=== PATIENT | female | born 1955 | race Caucasian/White ===

== ENCOUNTER → 2017-12-29 | Outpatient (CLI) | payer BC ==
[~2017-12-29] MED LIST: ACET650T97 PO; ATOR-22 PO; CHOL2000 PO; DOCU100T7 PO; FLM4 PO; LISI-729 PO; METF-384 PO; METF1000 PO; NYST100010 TOP; OMEP40CA41 PO
--- NOTE | 2017-12-29 09:25 | DIAGNOSTIC IMAGING REPORT ---
KUB CLINICAL HISTORY: N20.1 Ureteric stone nephrocalcinosis COMPARISON STUDY: 11/21/2017 FINDINGS: No change in the bilateral calcifications of the soft tissue pelvis. The 6 mm distal right ureteral calculus previously described potentially is vascular although this is not confirmed. No significant nephrocalcinosis. IMPRESSION: Negative study currently. The 6 mm calcification right lateral soft tissue pelvis is unchanged. Etiology is unknown The above report was generated using voice recognition software. It may contain grammatical, syntax or spelling errors. Electronically signed by: Justo Sanchez M.D. 12/29/2017 9:24 AM Dictated Date/Time: 12/29/2017 9:22 AM
--- NOTE | 2017-12-29 09:45 | DIAGNOSTIC IMAGING REPORT ---
(KASIE/BLAD)RETROPERITON COMP HISTORY: 62 years-old Female N20.1 Ureteric stone follow-up study in a patient with history of renal and ureteral calculi COMPARISON: KUB of same day and 11/22/2017, CT 11/15/2017 TECHNIQUE: Multiple real-time sonographic images of the kidneys and bladder were obtained assessing grayscale appearance and color flow FINDINGS: Right kidney measures 11.7 cm in length and demonstrates no renal calculi, hydronephrosis or suspicious mass lesions. Left kidney measures 10.4 cm in length and demonstrates no shadowing renal calculi, hydronephrosis or suspicious mass lesions. Subcentimeter cysts about the left kidney redemonstrated. Bladder is within normal limits with bilateral ureteral jets present. IMPRESSION: 1. Unremarkable sonographic appearance of the kidneys without renal calculi or hydronephrosis. 2. Urinary bladder appears unremarkable. The above report was generated using voice recognition software. It may contain grammatical, syntax or spelling errors. Electronically signed by: Brian Stein M.D. 12/29/2017 9:44 AM Dictated Date/Time: 12/29/2017 9:40 AM
== END | disposition home or self-care (01) ==
LOC: C.ULTR 08:53
PROVIDERS: ATTEND Urology
DX: N20.1 Calculus of ureter (principal)

== ENCOUNTER 2022-10-20 16:39 | Inpatient (IN) ==
[2022-10-20] MEDS ORDERED: SODIUM CHLORIDE 0.9% 1000ML 1,000 ML IV ONE ×2 (16:49→18:07)
--- NOTE | 2022-10-20 16:49 | ED Triage Note ---
Date of Service October 20, 2022 History of Present Illness This patient was briefly evaluated while in triage. An abbreviated physical exam was performed. This patient is a 67-year-old Female who presents to the ED for evaluation of "my sugar." Pt. reports elevated blood sugar of 425 at home. States she is a T ype 2 Diabetic and takes Metformin. Is not on insulin. Did have one episode of hyperglycemia about a year ago which went down. States had recent URI which was treated with Z-pack. Pt. notes she is not feeling much better despite the antibiotic. Reports persistent dizziness. BSG in triage 485, repeat 462. Physical Exam VITALS: Vitals are noted on the nurse's note and reviewed by myself. GENERAL: This is a 67 year old female, in no acute distress, nondiaphoretic, well-developed well-nourished. SKIN: No obvious rashes, edema, erythema HEAD: Normocephalic atraumatic. EYES: Conjunctivae without injection, sclerae without icterus. NECK: No JVD. LUNGS: No retractions or accessory muscle use. MUSCULOSKELETAL: Normal gait. NEURO: Patient was alert and oriented to person place and time. No focal neurological deficits. Initial orders for labs and / or imaging were placed and patient was placed in the waiting area until a bed is available. Please see further documentation for the full ED course.
[2022-10-20 17:52] LABS: Alanine Aminotransferase 15 U/L (7-52); Albumin Globulin Ratio 1.1 (0.9-2); Albumin Level 4.4 gm/dl (3.4-5.0); Alkaline Phosphatase 105 U/L (34-104); Anion Gap 14 (3-11); Aspartate Aminotransferase 13 U/L (13-39); BUN Creatinine Ratio 28.1 (10-20); Bilirubin,Total 0.8 mg/dl (0.2-1.0); Blood Urea Nitrogen 36 mg/dl (6-23); Calcium 10.7 mg/dl (8.6-10.3); Carbon Dioxide 22 mmol/L (21-32); Chloride 93 mmol/L (98-107); Est GFR (African American) 50.1 ml/min; Est GFR (Non-African American) 43.2 ml/min; Globulin 3.9 gm/dl (2.5-4.0); Glucose 456 mg/dl (70-99(Fasting)); Magnesium 1.7 mg/dl (1.7-2.4); Phosphorus 4.7 mg/dl (2.5-4.9); Potassium 5.3 mmol/L (3.5-5.1); Sodium 129 mmol/L (136-145); Total Protein 8.3 gm/dl (6.0-8.3)
[2022-10-20 17:59] LABS: Hematocrit (blood only) 48.5 % (37.0-47.0); Hemoglobin 16.7 g/dl (12.0-16.0); Mean Corpuscular Hemoglobin 30.6 pg (25.0-34.0); Mean Corpuscular Hgb Conc 34.4 g/dL (32.0-36.0); Mean Platelet Volume 10.2 fL (9.4-12.4); Platelet Count 431 K/uL (130-400); RDW Standard Deviation 42.1 fL (36.4-46.3); Red Blood Count 5.45 M/uL (4.20-5.40); White Blood Count 13.87 K/ul (4.8-10.8)
[2022-10-20] MEDS ORDERED: NovoLIN-R INSULIN PER UNIT CHARGE SC STA ×2 (18:10→20:28)
--- NOTE | 2022-10-20 18:13 | Emergency Department Note ---
Impression & Plan Hyperglycemia, DKA (diabetic ketoacidosis), Acute hyperkalemia ED Provider Note HISTORY OF PRESENT ILLNESS: Patient is a 61-year-old female presenting with dizziness and hyperglycemia. Patient reports that for the last 2 days she has been feeling dizzy described as lightheaded and "off." She states that she took her blood sugar at home and it was elevated over 400. She is on Jardiance and metformin twice daily. Reports that her glucose remained over 400, prompting her to present to the emergency department today. Denies any chest pain or shortness of breath. Reports po lyuria and polydipsia. Denies any abdominal pain. Denies any dysuria or hematuria. She reports that last week she was on a Z-Jon and prednisone course for upper respiratory infection diagnosed at [facility]. She reports her last dose of prednisone was 2 days ago. She denies any changes in vision, such as double or blurry vision. Denies any numbness, tingling or weakness in extremities. Denies any recent head injuries or chiropractic manipulation of her neck ROS: as above PHYSICAL EXAM: Constitutional: Patient appears in no acute distress. HENT: Head: Normocephalic and atraumatic. Eyes: EOMI, PERRL Mouth/Throat: Mucous membranes moist. Neck: Trachea midline. Neck supple. Cardiovascular: Tachycardic with regular rhythm. No murmurs, rubs or gallops. Intact distal pulses. Pulmonary/Chest: No respiratory distress. Breath sounds clear and equal bilaterally. No wheezes or rales. Abdominal: BS +. Abdomen soft, no tenderness, rebound or guarding. Musculoskeletal: No edema, tenderness or deformity noted. Skin: Warm and dry. No rash, erythema, pallor or cyanosis Psychiatric: Appropriate mood and affect for situation. Neurological: Alert and keenly responsive. CN II-XII grossly intact, moving all extremities equally and fully. MDM: - Vitals signs showed hypertension and tachycardia. - History obtained via patient. Patient presents with symptomatic hypoglycemia. Patient reports that she has been feeling lightheaded and unwell for the last 48 hours. Reports she has a history of type 2 diabetes and is on Jardiance and metformin. Reports that given her symptoms for the last few days, she took her blood sugar today and at home it was over 400. She presented to the emergency department for further evaluation. Denies any chest pain or shortness of breath. She was treated with a Z-Jon and prednisone over the last week for an upper respiratory infection. She reports her last dose of prednisone was 48 hours ago. - Chronic conditions affecting care: DM-2; HLD; HTN - Differential diagnoses include, but are not limited to: DKA; electrolyte abnormality; CLARK; pneumonia; UTI - Order placed for continuous cardiac monitoring. At this time, monitor showed rate of 90 bpm with normal sinus rhythm, per my interpretation. - External medical records reviewed. - Laboratory workup interpreted by myself showed leukocytosis (WBC 13.87); thrombocytosis (plt 431); hyponatremia (Na 129 - normal when corrected for hyperglycemia Na 135); hyperkalemia (K 5.3); slight CLARK (Cr 1.28); slightly elevated anion gap (14); hyperglycemia (glucose 456) - VBG shows slight acidosis (pH 7.34) - Patient given 2L NS and 5 units subQ insulin. - Repeat BMP shows closed anion gap and improved creatinine. Potassium still 5.2, but improved from 5.3. Repeat glucose 302. Will give an additional 7 units of insulin for further coverage. - Patient's hyperglycemia likely secondary to her steroid use. - Discussed results with patient. She reports that she still feeling generally unwell and felt dizzy when she got up to try to use the bathroom. Her repeat glucose is still in the 300s, though her gap is closed. Will admit to the hospital service for observation. - Discussion was had with social service liaison about patient's case and need for admission. - Hospitalist, Dr. Mancera, consulted for admission. - Patient admitted to [facility] service for further evaluation and management. ASSESSMENT AND PLAN: Diagnosis: DKA; hyperglycemia; hyperkalemia Plan: admit Past Med/Surg History Medical History DM type 2 (diabetes mellitus, type 2) Dyslipidemia GERD (gastroesophageal reflux disease) Hypertension Nephrolithiasis Uric acid renal calculus Surgical History H/O nephrolithotomy with removal of calculi History of hemorrhoidectomy Nephrostomy status "2015 - used to treat large staghorn calculus" S/P cholecystectomy S/P cholecystectomy [place] teeth extracted Family History Father Colon cancer Social History Smoking Status: Never smoker Hx Alcohol Use: No Hx Substance Use: No Preferred Language: Bulgarian current occupational status: employed Feels Safe at Home: Yes Allergies Allergies Allergy/AdvReac Type Severity Reaction Status Date / Time No Known Allergies Allergy Unknown Unverified 10/20/22 21:00 Home Meds Home Medications Medication Instructions Recorded Confirmed metformin 1,000 mg tablet 1,000 mg PO BID 09/24/20 10/20/22 atorvastatin 40 mg tablet 40 mg PO QAM 10/20/22 10/20/22 cholecalciferol (vitamin D3) 50 100 mcg PO DAILY 10/20/22 10/20/22 mcg (2,000 unit) tablet (Vitamin D3) empagliflozin 25 mg tablet 25 mg PO QAM 10/20/22 10/20/22 (Jardiance) glipizide 10 mg tablet, extended 10 mg PO DAILYBB 10/20/22 10/20/22 release 24 hr losartan 50 mg tablet 50 mg PO DAILY 10/20/22 10/20/22 magnesium chloride 64 mg 128 mg PO QAM 10/20/22 10/20/22 (magnesium chloride) tablet,delayed release (Mag 64) nystatin 100,000 unit/gram topical 1 applic topical TID 10/20/22 10/20/22 powder omeprazole 40 mg capsule,delayed 40 mg PO DAILYBB 10/20/22 10/20/22 release pioglitazone 45 mg tablet 45 mg PO DAILY 10/20/22 10/20/22 Previous Rx's Medication Instructions Recorded potassium citrate 15 mEq (1,620 1,620 mg PO BID #180 tabs 08/12/22 mg) tablet,extended release Results & Data (ED) Vital Signs Vital Signs - 24 hr 10/20/22 16:45 10/20/22 19:10 10/20/22 20:37 Temperature 36.1 C L Temperature Source Temporal Artery Scan Pulse Rate 115 H Pulse Rate [Finger] 91 H 85 Pulse Rhythm [Finger] Regular Pulse Strength [Finger] Normal Respiratory Rate 20 16 18 Respiratory Effort / Characteristics Non-Labored Spontaneous Non-Labored Spontaneous Non-Labored Spontaneous Respiratory Depth Normal Normal Normal Respiratory Pattern Regular Regular Blood Pressure 165/79 H Blood Pressure [Left Arm] 152/84 H 150/80 H Blood Pressure Mean 107 Blood Pressure Mean [Left Arm] 106 103 Blood Pressure Position [Left Arm] Semi-fowlers Semi-fowlers Pulse Oximetry 95 96 96 Oxygen Delivery Method Room Air Room Air Room Air Sepsis New/Unexplained Change in Mental Status No Sepsis Action Taken by Nursing No Action Required Laboratory Data 10/20/22 17:15 10/20/22 17:15 Lab Results 10/20/22 10/20/22 10/20/22 Range/Units 16:48 16:50 17:15 WBC 13.87 H (4.8-10.8) K/ul RBC 5.45 H (4.20-5.40) M/uL Hgb 16.7 H (12.0-16.0) g/dl Hct 48.5 H (37.0-47.0) % MCV 89.0 (80.0-100.0) fL MCH 30.6 (25.0-34.0) pg MCHC 34.4 (32.0-36.0) g/dL RDW Std Deviation 42.1 (36.4-46.3) fL RDW Coeff of Ankit 13.0 (11.5-14.5) % Plt Count 431 H (130-400) K/uL MPV 10.2 (9.4-12.4) fL Immature Gran % (Auto) 0.9 % Neut % (Auto) 51.2 % Lymph % (Auto) 39.4 % Mclean % (Auto) 7.6 % Eos % (Auto) 0.4 % Baso % (Auto) 0.5 % Neut # (Auto) 7.11 H (1.40-6.50) K/uL Lymph # (Auto) 5.47 H (1.2-3.4) K/uL Mclean # (Auto) 1.05 H (0.11-0.59) K/uL Eos # (Auto) 0.05 (0-0.50) K/uL Baso # (Auto) 0.07 (0-0.2) K/uL Immature Gran # (Auto) 0.12 (0.01-0.20) K/uL Polychromasia 1+ VBG pH (7.36-7.41) VBG pCO2 (38-50) mmHg VBG pO2 mmHg VBG HCO3 mmol/L VBG O2 Saturation % VBG Base Excess mEq/L Sodium (136-145) mmol/L Potassium (3.5-5.1) mmol/L Chloride (98-107) mmol/L Carbon Dioxide (21-32) mmol/L Anion Gap (3-11) BUN (6-23) mg/dl Creatinine (0.6-1.2) mg/dl Est Cr Clr Drug Dosing Est GFR ( Amer) ml/min Est GFR (Non-Af Amer) ml/min BUN/Creatinine Ratio (10-20) Glucose (70-99(Fasting)) mg/dl POC Glucose 485 H* 462 H* (70-99) mg/dl Calcium (8.6-10.3) mg/dl Phosphorus (2.5-4.9) mg/dl Magnesium (1.7-2.4) mg/dl Total Bilirubin (0.2-1.0) mg/dl AST (13-39) U/L ALT (7-52) U/L Alkaline Phosphatase (34-104) U/L Total Protein (6.0-8.3) gm/dl Albumin (3.4-5.0) gm/dl Globulin (2.5-4.0) gm/dl Albumin/Globulin Ratio (0.9-2) Urine Color Urine Appearance (Clear) Urine pH (4.5-7.5) Ur Specific [employer] (1.000-1.030) Urine Protein (Negative) Urine Glucose (UA) (Negative) Urine Ketones (Negative) Urine Blood (Negative) Urine Nitrite (Negative) Urine Bilirubin (Negative) Urine Urobilinogen (Negative) Ur Leukocyte Esterase (Negative) 10/20/22 10/20/22 10/20/22 Range/Units 17:15 17:17 17:58 WBC (4.8-10.8) K/ul RBC (4.20-5.40) M/uL Hgb (12.0-16.0) g/dl Hct (37.0-47.0) % MCV (80.0-100.0) fL MCH (25.0-34.0) pg MCHC (32.0-36.0) g/dL RDW Std Deviation (36.4-46.3) fL RDW Coeff of Ankit (11.5-14.5) % Plt Count (130-400) K/uL MPV (9.4-12.4) fL Immature Gran % (Auto) % Neut % (Auto) % Lymph % (Auto) % Mclean % (Auto) % Eos % (Auto) % Baso % (Auto) % Neut # (Auto) (1.40-6.50) K/uL Lymph # (Auto) (1.2-3.4) K/uL Mclean # (Auto) (0.11-0.59) K/uL Eos # (Auto) (0-0.50) K/uL Baso # (Auto) (0-0.2) K/uL Immature Gran # (Auto) (0.01-0.20) K/uL Polychromasia VBG pH (7.36-7.41) VBG pCO2 (38-50) mmHg VBG pO2 mmHg VBG HCO3 mmol/L VBG O2 Saturation % VBG Base Excess mEq/L Sodium 129 L (136-145) mmol/L Potassium 5.3 H (3.5-5.1) mmol/L Chloride 93 L (98-107) mmol/L Carbon Dioxide 22 (21-32) mmol/L Anion Gap 14 H (3-11) BUN 36 H (6-23) mg/dl Creatinine 1.28 H (0.6-1.2) mg/dl Est Cr Clr Drug Dosing Not Reportable Est GFR ( Amer) 50.1 ml/min Est GFR (Non-Af Amer) 43.2 ml/min BUN/Creatinine Ratio 28.1 H (10-20) Glucose 456 H* (70-99(Fasting)) mg/dl POC Glucose 489 H* (70-99) mg/dl Calcium 10.7 H (8.6-10.3) mg/dl Phosphorus 4.7 (2.5-4.9) mg/dl Magnesium 1.7 (1.7-2.4) mg/dl Total Bilirubin 0.8 (0.2-1.0) mg/dl AST 13 (13-39) U/L ALT 15 (7-52) U/L Alkaline Phosphatase 105 H (34-104) U/L Total Protein 8.3 (6.0-8.3) gm/dl Albumin 4.4 (3.4-5.0) gm/dl Globulin 3.9 (2.5-4.0) gm/dl Albumin/Globulin Ratio 1.1 (0.9-2) Urine Color Yellow Urine Appearance Clear (Clear) Urine pH 5.0 (4.5-7.5) Ur Specific [employer] 1.036 H (1.000-1.030) Urine Protein Negative (Negative) Urine Glucose (UA) 3+ H (Negative) Urine Ketones 2+ H (Negative) Urine Blood Negative (Negative) Urine Nitrite Negative (Negative) Urine Bilirubin Negative (Negative) Urine Urobilinogen Negative (Negative) Ur Leukocyte Esterase Negative (Negative) 10/20/22 10/20/22 10/20/22 Range/Units 18:39 19:31 19:47 WBC (4.8-10.8) K/ul RBC (4.20-5.40) M/uL Hgb (12.0-16.0) g/dl Hct (37.0-47.0) % MCV (80.0-100.0) fL MCH (25.0-34.0) pg MCHC (32.0-36.0) g/dL RDW Std Deviation (36.4-46.3) fL RDW Coeff of Ankit (11.5-14.5) % Plt Count (130-400) K/uL MPV (9.4-12.4) fL Immature Gran % (Auto) % Neut % (Auto) % Lymph % (Auto) % Mclean % (Auto) % Eos % (Auto) % Baso % (Auto) % Neut # (Auto) (1.40-6.50) K/uL Lymph # (Auto) (1.2-3.4) K/uL Mclean # (Auto) (0.11-0.59) K/uL Eos # (Auto) (0-0.50) K/uL Baso # (Auto) (0-0.2) K/uL Immature Gran # (Auto) (0.01-0.20) K/uL Polychromasia VBG pH 7.34 L (7.36-7.41) VBG pCO2 46 (38-50) mmHg VBG pO2 28 mmHg VBG HCO3 25 mmol/L VBG O2 Saturation < 60.0 % VBG Base Excess -1.3 mEq/L Sodium 134 L (136-145) mmol/L Potassium 5.2 H (3.5-5.1) mmol/L Chloride 102 (98-107) mmol/L Carbon Dioxide 23 (21-32) mmol/L Anion Gap 9 (3-11) BUN 33 H (6-23) mg/dl Creatinine 1.10 (0.6-1.2) mg/dl Est Cr Clr Drug Dosing Not Reportable Est GFR ( Amer) 60.2 ml/min Est GFR (Non-Af Amer) 51.9 ml/min BUN/Creatinine Ratio 30.0 H (10-20) Glucose 302 H* (70-99(Fasting)) mg/dl POC Glucose 359 H* (70-99) mg/dl Calcium 9.2 (8.6-10.3) mg/dl Phosphorus (2.5-4.9) mg/dl Magnesium (1.7-2.4) mg/dl Total Bilirubin (0.2-1.0) mg/dl AST (13-39) U/L ALT (7-52) U/L Alkaline Phosphatase (34-104) U/L Total Protein (6.0-8.3) gm/dl Albumin (3.4-5.0) gm/dl Globulin (2.5-4.0) gm/dl Albumin/Globulin Ratio (0.9-2) Urine Color Urine Appearance (Clear) Urine pH (4.5-7.5) Ur Specific [employer] (1.000-1.030) Urine Protein (Negative) Urine Glucose (UA) (Negative) Urine Ketones (Negative) Urine Blood (Negative) Urine Nitrite (Negative) Urine Bilirubin (Negative) Urine Urobilinogen (Negative) Ur Leukocyte Esterase (Negative) Administered Medications Discontinued Medications Sodium Chloride (Nss 1000ml) 1,000 mls @ 999 mls/hr IV .Q1H1M ONE Stop: 10/20/22 17:49 Last Infusion: 10/20/22 19:34 Dose: 0 mls/hr Documented By: Admin: 10/20/22 17:22 Dose: 999 mls/hr Documented By: EVENS Sodium Chloride (Nss 1000ml) 1,000 mls @ 999 mls/hr IV .Q1H1M ONE Stop: 10/20/22 19:07 Last Infusion: 10/20/22 20:18 Dose: 0 mls/hr Documented By: Admin: 10/20/22 19:10 Dose: 999 mls/hr Documented By: Insulin Human Regular (Novolin-R Insulin Per Unit Charge) 5 units SC NOW STA Stop: 10/20/22 18:11 Last Admin: 10/20/22 18:27 Dose: 5 units Documented By: Co-signed By: MALLIKA Insulin Human Regular (Novolin-R Insulin Per Unit Charge) 7 units SC NOW STA Stop: 10/20/22 20:29 Last Admin: 10/20/22 20:35 Dose: 7 units Documented By: Co-signed By: MALLIKA Discharge Plan Visit Data Chief Complaint: Hyperglycemia Stated Complaint: HIGH GLUCOSE,EXCESSIVE THIRST,DRY MOUTH,DIZZY ED Provider: Agatha Charlton Discharge Problem: Hyperglycemia, DKA (diabetic ketoacidosis), Acute hyperkalemia Forms Stand Alone Forms: My [facility] Prescriptions Prescriptions: No Action potassium citrate 15 mEq tablet extended release 1,620 mg PO BID Qty: 180 3RF metformin 1,000 mg tablet 1,000 mg PO BID atorvastatin 40 mg tablet 40 mg PO QAM pioglitazone 45 mg tablet 45 mg PO DAILY nystatin 100,000 unit/gram powder 1 applic TOPICAL TID Rx Instructions: apply to area under left breast Jardiance 25 mg tablet 25 mg PO QAM losartan 50 mg tablet 50 mg PO DAILY omeprazole 40 mg capsule,delayed release(DR/EC) 40 mg PO DAILYBB glipizide 10 mg Tablet Extended Release 24hr 10 mg PO DAILYBB Mag 64 64 mg tablet,delayed release (DR/EC) 128 mg PO QAM cholecalciferol (vitamin D3) [Vitamin D3] 50 mcg (2,000 unit) Tablet 100 mcg PO DAILY Referrals Referrals: Virginia Matute DO [Primary Care Provider] -
[2022-10-20 18:16] LABS: Appearance Urine Clear (Clear); Bilirubin Urine Negative (Negative); Blood Urine Negative (Negative); Color Urine Yellow; Glucose Urine UA 3+ (Negative); Ketones Urine 2+ (Negative); Leukocyte Esterase Urine Negative (Negative); Nitrite Urine Negative (Negative); Protein Urine Negative (Negative); Specific Gravity Urine 1.036 (1.000-1.030); Urobilinogen Urine Negative (Negative)
[2022-10-20 18:53] LABS: Base Excess VBG -1.3 mEq/L; HCO3 VBG 25 mmol/L; Oxygen Saturation VBG < 60.0 %; PCO2 VBG 46 mmHg (38-50); PO2 VBG 28 mmHg; pH VBG 7.34 (7.36-7.41)
[2022-10-20 19:06] LABS: Basophils # (auto) 0.07 K/uL (0-0.2); Basophils % (auto) 0.5 %; Eosinophils # (auto) 0.05 K/uL (0-0.50); Eosinophils % (auto) 0.4 %; Immature Granulocytes # (auto) 0.12 K/uL (0.01-0.20); Immature Granulocytes % (auto) 0.9 %; Lymphocytes # (auto) 5.47 K/uL (1.2-3.4); Lymphocytes % (auto) 39.4 %; Monocytes # (auto) 1.05 K/uL (0.11-0.59); Monocytes % (auto) 7.6 %; Neutrophils # (auto) 7.11 K/uL (1.40-6.50); Neutrophils % (auto) 51.2 %; Polychromasia 1+
[2022-10-20 20:23] LABS: Anion Gap 9 (3-11); Blood Urea Nitrogen 33 mg/dl (6-23); Calcium 9.2 mg/dl (8.6-10.3); Carbon Dioxide 23 mmol/L (21-32); Chloride 102 mmol/L (98-107); Est GFR (African American) 60.2 ml/min; Est GFR (Non-African American) 51.9 ml/min; Glucose 302 mg/dl (70-99(Fasting)); Potassium 5.2 mmol/L (3.5-5.1); Sodium 134 mmol/L (136-145)
[2022-10-21] MEDS ORDERED: Patient's HEIGHT &/or WEIGHT Needed SCH
[2022-10-21] MEDS ORDERED: GLUCAGON FOR INJ 1 MG VIAL SQ PRN (00:47)
[2022-10-21] MEDS ORDERED: CARBOHYDRATES FOR HYPOGLYCEMIA PO PRN (00:47)
[2022-10-21] MEDS ORDERED: DEXTROSE 50% 50 ML SYRINGE IV PRN (00:47)
[2022-10-21] MEDS ORDERED: PHARMACY GLYCEMIC MGMT CONSULT PRN (00:47)
[2022-10-21] MEDS ORDERED: GLUCOSE 10 TAB/TUBE PO PRN (00:47)
[2022-10-21] MEDS ORDERED: POLYETHYLENE (MIRALAX) 17 GM PACK PO PRN (00:47)
[2022-10-21] MEDS ORDERED: NITROGLYCERIN SL 0.4 MG/TAB TAB SL PRN (00:47)
[2022-10-21] MEDS ORDERED: GLUCOSE 40% GEL 15 GM TUBE PO PRN (00:47)
[2022-10-21] MEDS ORDERED: ACETAMINOPHEN 325 MG TAB PO PRN (00:47)
--- NOTE | 2022-10-21 00:47 | History and Physical Report ---
DATE OF ADMISSION: 10/20/2022. CHIEF COMPLAINT: Hyperglycemia. HISTORY OF PRESENT ILLNESS: This is a 67-year-old female with past medical history significant for type 2 diabetes, hyperlipidemia, chronic kidney disease stage III, hypertension, morbid obesity, cystocele, history of benign paroxysmal vertigo, presents with hyperglycemia. The patient says she was treated with steroids and Z-ROSE for fluid on the right ear and also cough and upper respiratory infection. She states she finished course on Tuesday. She was camping and today she felt very dizzy and shaky. She could not stand up and when checked her sugars were running very high and came here. Her sugars were 485, also potassium was 5.3, anion gap of 14. She was given a dose of IV insulin 5 units and her anion gap closed. Potassium is 5.2. Sugars were still in 300's subcutaneous NovoLog and given 2 liters of fluids given and we were called for observation. Currently, the patient is resting comfortably She states she still somewhat shaky . Says she was micturating a lot and also she had 5-6 episodes of diarrhea yesterday but the diarrhea got resolved today. Sod nauseous. Denies any abdominal pain. No chest pain, no shortness of breath. Still has some dry cough, but is getting better. Has mild headache. No blurred visions, no earache, no runny nose, no difficulty swallowing. No fevers, no swelling in the legs, hemodynamically stable. ALLERGIES: No known drug allergies. PAST MEDICAL HISTORY: As mentioned above. PAST SURGICAL HISTORY: Colonoscopy, wisdom tooth removal, hemorrhoidectomy, cholecystectomy. MEDICATIONS: The patient is on atorvastatin 40 mg p.o. a.m., vitamin D 100 mcg p.o. daily, Jardiance 25 mg p.o. daily, glipizide 10 mg p.o. daily, losartan 50 mg p.o. daily, magnesium chloride 128 mg p.o. daily, metformin 1000 mg p.o. b.i.d., nystatin topical t.i.d., omeprazole 40 mg p.o. daily, pioglitazone 45 mg p.o. daily, potassium citrate 15 mEq b.i.d. FAMILY HISTORY: Significant for sister has kidney cancer , Sister has thyroid cancer. Half sister have colon cancer. Father has colon cancer. Maternal grandfather has diabetes. Mother has diabetes, mother had stroke. SOCIAL HISTORY: . No smoking, no alcohol, no drug use. REVIEW OF SYSTEMS: As per HPI. Rest of the review of systems is negative. PHYSICAL EXAMINATION: GENERAL: The patient is obese, not in acute distress. VITAL SIGNS: Temperature 36.1, pulse 85, respiratory rate 18, blood pressure 150/80, oxygen 96% on room air. HEENT: Pupils equal, round and reactive to light. Oral mucosa dry. NECK: No JVD, no neck masses. CARDIOVASCULAR: S1 and S2 heard. Regular rate and rhythm. No murmur, no gallop. RESPIRATORY SYSTEM: Normal AP diameter. No accessory muscle use. No wheezing, no crackles. ABDOMEN: Soft, bowel sounds present, nontender, no distention. CENTRAL NERVOUS SYSTEM: Cranial nerves II-XII grossly intact, nonfocal. EXTREMITIES: No edema, no erythema. LABORATORY DATA: WBC 13.8, hemoglobin 16.7, hematocrit 48.5, platelets 431. Venous blood gas, pH of 7.34, pCO2 of 46. Sodium 134, potassium 5.2, chloride 102, bicarbonate 23, anion gap was 14, currently 9, BUN 33, creatinine 1.1, serum glucose currently 302, calcium 9.2, phosphorus 4.7, magnesium 1.7, total bilirubin 0.8, AST 13, ALT 15, alkaline phosphatase 105. Urinalysis, +2 ketones, +3 glucose. SARS-COVID rapid test negative. ASSESSMENT AND PLAN: This is a 67-year-old female with history of diabetes, recently treated with prednisone,for upper respiratory infection, comes with hyperglycemia, possible mild diabetic ketoacidosis, which got resolved. 1. Hyperglycemia secondary to possibly being on steroids. She had some mild anion gap and sugars were running 400s and got resolved with IV insulin. She has a potassium of 5.2, sodium of 134. Received 2 liters of fluid in the ER. We will observe in the hospital with Lantus 7 units b.i.d. and insulin sliding scale. We will follow HbA1c levels. We will continue IV fluid, normal saline 150 mL per hour. Glycemic pharmacy consult. Closely monitor in the med tele. 2. Hyperkalemia. We will follow repeat labs in the a.m. Potassium is 5.2. We will hold potassium citrate, which she takes for kidney stones.Will hold losartan for now. 3. Hypertension. holding losartan.Will monitor 4. Gastroesophageal reflux disease. Continue omeprazole. 5. Hyperlipidemia. Continue statin. 6. Morbid obesity. Needs counseling. 7. Chronic kidney disease stage III, presently with creatinine of 1.1. Follow the labs. 8. Deep venous thrombosis prophylaxis, Lovenox. DISPOSITION: Closely monitor in the med tele. PT/OT prior to discharge. Social service to help with discharge planning. Level 1 full code. Job ID: [id number] [facility]
[2022-10-21] MEDS ORDERED: LANTUS PER UNIT CHARGE SQ ONE (01:00)
[2022-10-21] MEDS: SODIUM CHLORIDE 0.9% 1000ML 1,000 ML IV SCH ×2 (01:06→07:32)
[2022-10-21] MEDS ORDERED: INSULIN ASPART PER UNIT CHARGE SC ONE (02:00)
[2022-10-21] MEDS: PANTOprazole 40 MG TAB PO SCH (05:49)
[2022-10-21] MEDS: ENOXAPARIN INJ 40 MG/0.4 ML SYR SQ SCH (05:56)
--- NOTE | 2022-10-21 06:50 | Communication Note ---
Date of Service: October 21, 2022 Held vitamin d as initial calcium was 10.7(from dehydration?) . On high dose vitamin D.Will follow vitamin D levels.
[2022-10-21] MEDS ORDERED: LOSARTAN POTASSIUM 50 MG TAB PO SCH (09:00)
[2022-10-21] MEDS ORDERED: CHOLECALCIFEROL 1,000 UNITS 25 MCG TAB PO SCH (09:00)
[2022-10-21 09:01] LABS: Hematocrit (blood only) 41.7 % (37.0-47.0); Hemoglobin 14.4 g/dl (12.0-16.0); Mean Corpuscular Hemoglobin 30.5 pg (25.0-34.0); Mean Corpuscular Hgb Conc 34.5 g/dL (32.0-36.0); Mean Corpuscular Volume 88.3 fL (80.0-100.0); Mean Platelet Volume 10.1 fL (9.4-12.4); Platelet Count 376 K/uL (130-400); RDW Coefficient of Variation 13.2 % (11.5-14.5); RDW Standard Deviation 42.6 fL (36.4-46.3); Red Blood Count 4.72 M/uL (4.20-5.40); White Blood Count 11.72 K/ul (4.8-10.8)
[2022-10-21 09:16] LABS: BUN Creatinine Ratio 25.8 (10-20); Calcium 9.3 mg/dl (8.6-10.3); Creatinine Clr Calc Pharmacy 64.6 ml/min; Est GFR (African American) 77.7 ml/min; Est GFR (Non-African American) 67.1 ml/min; Magnesium 1.6 mg/dl (1.7-2.4); Potassium 4.3 mmol/L (3.5-5.1)
[2022-10-21] MEDS: MAGNESIUM CHLORIDE W/CALCIUM 64MG DELAYED REL TAB PO SCH (09:21)
[2022-10-21] MEDS: ATORVASTATIN 40 MG TAB PO SCH (09:21)
[2022-10-21] MEDS: INSULIN ASPART PER UNIT CHARGE SC SCH ×4 (09:25→20:17)
[2022-10-21] MEDS: NYSTATIN POWDER 15GM BTL EXT SCH ×3 (09:27→20:06)
[2022-10-21 09:46] LABS: Basophils # (auto) 0.07 K/uL (0-0.2); Basophils % (auto) 0.6 %; Eosinophils # (auto) 0.12 K/uL (0-0.50); Immature Granulocytes # (auto) 0.09 K/uL (0.01-0.20); Immature Granulocytes % (auto) 0.8 %; Lymphocytes % (auto) 46.1 %; Monocytes # (auto) 1.03 K/uL (0.11-0.59); Monocytes % (auto) 8.8 %; Neutrophils # (auto) 5.01 K/uL (1.40-6.50); Neutrophils % (auto) 42.7 %; RBC Morphology Unremarkable
[2022-10-21] MEDS ORDERED: MAGNESIUM SULFATE / D5W 1 GM/100 ML BAG IV ONE (10:12)
[2022-10-21 10:16] LABS: Estimated Average Glucose 292 mg/dl; Hemoglobin A1C 11.8 % (4.5-5.6)
--- NOTE | 2022-10-21 13:16 | Pharmacy Report ---
Pharmacy Glycemic Short Note 2 - Date of Service October 21, 2022 - Glycemic Short BSG Results (Last 24 hours): 10/20/22 10/20/22 10/20/22 16:48 16:50 17:15 Glucose 456 H* POC Glucose 485 H* 462 H* 10/20/22 10/20/22 10/20/22 17:17 19:31 19:47 Glucose 302 H* POC Glucose 489 H* 359 H* 10/21/22 10/21/22 10/21/22 00:54 05:31 07:30 Glucose POC Glucose 169 H 142 H 164 H 10/21/22 10/21/22 08:36 11:25 Glucose 221 H POC Glucose 235 H OUTPATIENT ANTIDIABETIC REGIMEN: * Metformin 1000 mg PO BID * Jardiance 25 mg PO QAM * Pioglitazone 45 mg daily * HbA1c = 11.8% on 10/21/22 ASSESSMENT: * 67 y/o F admitted for hyperglycemia yesterday. She has a history of Type 2 diabetes managed at home on three different oral anti-diabetic meds. * Patient was started on regular insulin yesterday. Once pharmacy was consulted for glycemic management, bolus insulin was switched over to Novolog. * She received basal insulin 17 units around 01:25 AM today. * BSGs trended down from 462 mg/dl on admission to 142 mg/dl today AM. * Novolog parameters were started based on stress of 2 yesterday. Pre-lunch BSG trended up to 235 mg/dl. Carb ratio tightened. * Basal insulin added for HS, dose between stress of 2 and 3. PLAN FOR INPATIENT GLYCEMIC CONTROL: * Hold outpatient oral diabetes medications * Basal insulin * Lantus 17 units SC x1 at 01:25 AM today * Lantus 20 units SC HS * Bolus insulin * NovoLog per scale ACHS or Q6hrs while NPO * Goal Range: Low 110 mg/dL - High 140 mg/dL * Correction Factor: 25 mg/dL/unit * Nutritional / Prandial insulin per carb ratio of 1 unit per 6 grams CHO consumed
--- NOTE | 2022-10-21 18:00 | Hospitalist Progress Note ---
Date of Service October 21, 2022 Assessment & Plan (1) DKA (diabetic ketoacidosis): Plan Patient is a 67 yr old female with history of diabetes, recently treated with prednisone,for upper respiratory infection, comes with hyperglycemia, possible mild diabetic ketoacidosis, which got resolved. Uncontrolled diabetes mellitus type 2 Mild DKA-POA HbA1c 11.8 Mild hyperkalemia Anion gap closed Hold p.o. meds Continue insulin per protocol Hyperkalemia resolved as well healthcare educator consulted Appreciate glycemic pharmacist help Monitor BGs Losartan held Hypercalcemia Likely secondary to dehydration Calcium levels normalized with IV fluids Monitor Vitamin D deficiency Continue vitamin D supplements Hypertension hold losartan as above Monitor BP GERD Continue PPI Hyperlipidemia Continue statin Morbid obesity BMI 42 CKD III Monitor renal function DVT Px: Lovenox SQ Code Status Full Code Admission and Anticipated Discharge Date Admission Date: October 21, 2022 Subjective Patient is seen and examined at bedside Feels a lot better today Denies any chest pain, dyspnea, dizziness, nausea, abdominal pain Blood glucose levels better No other complaints Review of Systems Review of Systems: All systems reviewed & are unremarkable except as noted in Subjective Physical Exam Physical Exam: Physical Exam: Vitals signs as noted above General Appearance:Obese, no apparent distress Head: normocephalic, Atraumatic Eyes: normal inspection, EOMI Neck: supple, Trachea midline Respiratory/Chest: Normal breath sounds, CTA, No accessory muscle use Cardiovascular: S1, S2, No murmur Abdomen/GI:Soft, Non tender, Bowel sounds present Extremities/Musculoskeletal:normal inspection, no edema Neurologic/Psych:AAOX3, grossly no focal neurological deficits Skin: normal color, warm Results & Data Results & Data Vital Signs (Past 12 Hours) Vital Signs Temp Pulse Pulse Resp BP Pulse Ox O2 Del Method 10/21/22 15:46 93 H 10/21/22 14:51 36.5 C 94 H 18 119/73 91 Room Air 10/21/22 11:16 36.5 C 84 20 120/75 93 Room Air 10/21/22 07:54 36.8 C 80 18 125/76 93 Room Air 10/21/22 07:22 88 Laboratory Results Short CBC 10/20/22 10/21/22 Range/Units 17:15 08:36 WBC 13.87 H 11.72 H (4.8-10.8) K/ul Hgb 16.7 H 14.4 (12.0-16.0) g/dl Hct 48.5 H 41.7 (37.0-47.0) % Plt Count 431 H 376 (130-400) K/uL BMP 10/20/22 10/21/22 19:47 08:36 Sodium 134 L 137 Potassium 5.2 H 4.3 Chloride 102 106 Carbon Dioxide 23 20 L BUN 33 H 23 Creatinine 1.10 0.89 Glucose 302 H* 221 H Calcium 9.2 9.3 Urine 10/20/22 Range/Units 17:58 Urine Color Yellow Urine Appearance Clear (Clear) Urine pH 5.0 (4.5-7.5) Ur Specific [place] 1.036 H (1.000-1.030) Urine Protein Negative (Negative) Urine Glucose (UA) 3+ H (Negative)
[2022-10-21] MEDS ORDERED: LANTUS PER UNIT CHARGE SC SCH (21:00)
[2022-10-22] MEDS: PANTOprazole 40 MG TAB PO SCH (05:37)
[2022-10-22] MEDS: ENOXAPARIN INJ 40 MG/0.4 ML SYR SQ SCH (05:37)
[2022-10-22 08:32] LABS: Hematocrit (blood only) 41.6 % (37.0-47.0); Hemoglobin 14.3 g/dl (12.0-16.0); Mean Corpuscular Hemoglobin 30.7 pg (25.0-34.0); Mean Corpuscular Hgb Conc 34.4 g/dL (32.0-36.0); Mean Corpuscular Volume 89.3 fL (80.0-100.0); Platelet Count 362 K/uL (130-400); RDW Coefficient of Variation 13.2 % (11.5-14.5); RDW Standard Deviation 42.8 fL (36.4-46.3); Red Blood Count 4.66 M/uL (4.20-5.40); White Blood Count 12.54 K/ul (4.8-10.8)
[2022-10-22] MEDS: ATORVASTATIN 40 MG TAB PO SCH (08:37)
[2022-10-22] MEDS: MAGNESIUM CHLORIDE W/CALCIUM 64MG DELAYED REL TAB PO SCH (08:37)
[2022-10-22] MEDS: NYSTATIN POWDER 15GM BTL EXT SCH ×2 (08:37→14:09)
[2022-10-22] MEDS: INSULIN ASPART PER UNIT CHARGE SC SCH ×2 (08:41→12:31)
[2022-10-22 08:43] LABS: BUN Creatinine Ratio 22.3 (10-20); Calcium 9.5 mg/dl (8.6-10.3); Creatinine Clr Calc Pharmacy 61.2 ml/min; Est GFR (African American) 72.8 ml/min; Est GFR (Non-African American) 62.8 ml/min; Magnesium 1.8 mg/dl (1.7-2.4); Potassium 4.6 mmol/L (3.5-5.1)
[2022-10-22] MEDS ORDERED: LANTUS PER UNIT CHARGE SC ONE (13:00)
--- NOTE | 2022-10-22 13:24 | XRay Report ---
XR lumbar spine 2-3V HISTORY: 67 years-old Female Back Pain acute low back pain COMPARISON: CT 02/19/2022 TECHNIQUE: 3 views of the lumbar spine FINDINGS: Cholecystectomy. Moderate fecal retention. Demineralized appearance of the bones. Mild multilevel sarina tebral disc space narrowing, spondylotic spurring and facet arthrosis. No acute fracture, subluxation , spondylolysis or spondylolisthesis. Moderate L5-S1 facet arthrosis. IMPRESSION: 1. No acute fracture or subluxation. 2. Predominantly mild degenerative changes as above. ACT 112: Negative or not required by law. The above report was generated using voice recognition software. It may contain grammatical, syntax o r spelling errors. Electronically signed by: Garfield Stein M.D. 10/22/2022 1:23 PM
--- NOTE | 2022-10-22 14:20 | Hospitalist Progress Note ---
Date of Service October 22, 2022 Assessment & Plan (1) DKA (diabetic ketoacidosis): Plan Patient is a 67 yr old female with history of diabetes, recently treated with prednisone,for upper respiratory infection, comes with hyperglycemia, possible mild diabetic ketoacidosis, which got resolved. Uncontrolled diabetes mellitus type 2 Mild DKA-POA HbA1c 11.8 Mild hyperkalemia Anion gap closed Continue insulin per protocol Hyperkalemia resolved community health educator consulted Appreciate glycemic pharmacist help Monitor BGs Resume losartan upon discharge Plan to discharge on basal insulin: Lantus 20 units daily Discontinue pioglitazone for now. Plan to resume glipizide, Jardiance, metformin upon discharge Hypercalcemia Likely secondary to dehydration Calcium levels normalized with IV fluids Monitor Vitamin D deficiency Continue vitamin D supplements Hypertension hold losartan as above Monitor BP GERD Continue PPI Hyperlipidemia Continue statin Morbid obesity BMI 42 CKD III Monitor renal function DVT Px: Lovenox SQ Code Status Full Code Admission and Anticipated Discharge Date Admission Date: October 21, 2022 Subjective Patient is seen and examined at bedside States having minimal headache today Also reports chronic lower back pain No other complaints Denies any chest pain, dyspnea, dizziness, nausea, abdominal pain Plan to discharge home today Review of Systems Review of Systems: All systems reviewed & are unremarkable except as noted in Subjective Physical Exam Physical Exam: Physical Exam: Vitals signs as noted above General Appearance:Obese, no apparent distress Head: normocephalic, Atraumatic Eyes: normal inspection, EOMI Neck: supple, Trachea midline Respiratory/Chest: Normal breath sounds, CTA, No accessory muscle use Cardiovascular: S1, S2, No murmur Abdomen/GI:Soft, Non tender, Bowel sounds present Extremities/Musculoskeletal:normal inspection, no edema Neurologic/Psych:AAOX3, grossly no focal neurological deficits Skin: normal color, warm Results & Data Results & Data Vital Signs (Past 12 Hours) Vital Signs Temp Pulse Resp BP Pulse Ox O2 Del Method 10/22/22 07:18 36.6 C 86 18 119/79 96 Room Air Laboratory Results Short CBC 10/22/22 Range/Units 07:57 WBC 12.54 H (4.8-10.8) K/ul Hgb 14.3 (12.0-16.0) g/dl Hct 41.6 (37.0-47.0) % Plt Count 362 (130-400) K/uL BMP 10/22/22 07:57 Sodium 135 L Potassium 4.6 Chloride 107 Carbon Dioxide 18 L BUN 21 Creatinine 0.94 Glucose 194 H Calcium 9.5
--- NOTE | 2022-10-22 14:35 | Discharge Summary ---
Date of Service October 22, 2022 Admission HPI Per Admitting Provider CHIEF COMPLAINT: Hyperglycemia. HISTORY OF PRESENT ILLNESS: This is a 67-year-old female with past medical history significant for type 2 diabetes, hyperlipidemia, chronic kidney disease stage III, hypertension, morbid obesity, cystocele, history of benign paroxysmal vertigo, presents with hyperglycemia. The patient says she was treated with steroids and Z-ROSE for fluid on the right ear and also cough and upper res piratory infection. She states she finished course on Tuesday. She was camping and today she felt very dizzy and shaky. She could not stand up and when checked her sugars were running very high and came here. Her sugars were 485, also potassium was 5.3, anion gap of 14. She was given a dose of IV insulin 5 units and her anion gap closed. Potassium is 5.2. Sugars were still in 300's subcutaneous NovoLog and given 2 liters of fluids given and we were called for observation. Currently, the patient is resting comfortably She states she still somewhat shaky . Says she was micturating a lot and also she had 5-6 episodes of diarrhea yesterday but the diarrhea got resolved today. [place]roy nauseous. Denies any abdominal pain. No chest pain, no shortness of breath. Still has some dry cough, but is getting better. Has mild headache. No blurred visions, no earache, no runny nose, no difficulty swallowing. No fevers, no swelling in the legs, hemodynamically stable. Admission Exam Per Admitting Provider PHYSICAL EXAMINATION: GENERAL: The patient is obese, not in acute distress. VITAL SIGNS: Temperature 36.1, pulse 85, respiratory rate 18, blood pressure 150/80, oxygen 96% on room air. HEENT: Pupils equal, round and reactive to light. Oral mucosa dry. NECK: No JVD, no neck masses. CARDIOVASCULAR: S1 and S2 heard. Regular rate and rhythm. No murmur, no gallop. RESPIRATORY SYSTEM: Normal AP diameter. No accessory muscle use. No wheezing, no crackles. ABDOMEN: Soft, bowel sounds present, nontender, no distention. CENTRAL NERVOUS SYSTEM: Cranial nerves II-XII grossly intact, nonfocal. EXTREMITIES: No edema, no erythema. Principal Diagnosis Uncontrolled diabetes mellitus type 2 Mild DKA Hyperkalemia Hypercalcemia Discharge Data Allergies Allergy/AdvReac Type Severity Reaction Status Date / Time No Known Allergies Allergy Unknown Unverified 10/20/22 21:00 Consultations 10/20/22 20:57 ED Decision to Admit Stat Procedures Performed Laboratory Results WBC 12.54 K/ul (4.8-10.8) H 10/22/22 07:57 RBC 4.66 M/uL (4.20-5.40) 10/22/22 07:57 Hgb 14.3 g/dl (12.0-16.0) 10/22/22 07:57 Hct 41.6 % (37.0-47.0) 10/22/22 07:57 MCV 89.3 fL (80.0-100.0) 10/22/22 07:57 MCH 30.7 pg (25.0-34.0) 10/22/22 07:57 MCHC 34.4 g/dL (32.0-36.0) 10/22/22 07:57 RDW Std Deviation 42.8 fL (36.4-46.3) 10/22/22 07:57 RDW Coeff of Ankit 13.2 % (11.5-14.5) 10/22/22 07:57 Plt Count 362 K/uL (130-400) 10/22/22 07:57 MPV 10.0 fL (9.4-12.4) 10/22/22 07:57 Immature Gran % (Auto) 0.8 % 10/21/22 08:36 Neut % (Auto) 42.7 % 10/21/22 08:36 Lymph % (Auto) 46.1 % 10/21/22 08:36 [place] % (Auto) 8.8 % 10/21/22 08:36 Eos % (Auto) 1.0 % 10/21/22 08:36 Baso % (Auto) 0.6 % 10/21/22 08:36 Neut # (Auto) 5.01 K/uL (1.40-6.50) 10/21/22 08:36 Lymph # (Auto) 5.40 K/uL (1.2-3.4) H 10/21/22 08:36 [place] # (Auto) 1.03 K/uL (0.11-0.59) H 10/21/22 08:36 Eos # (Auto) 0.12 K/uL (0-0.50) 10/21/22 08:36 Baso # (Auto) 0.07 K/uL (0-0.2) 10/21/22 08:36 Immature Gran # (Auto) 0.09 K/uL (0.01-0.20) 10/21/22 08:36 Blood Smear Review 10/20/22 17:15 RBC Morphology Unremarkable 10/21/22 08:36 Polychromasia 1+ 10/20/22 17:15 VBG pH 7.34 (7.36-7.41) L 10/20/22 18:39 VBG pCO2 46 mmHg (38-50) 10/20/22 18:39 VBG pO2 28 mmHg 10/20/22 18:39 VBG HCO3 25 mmol/L 10/20/22 18:39 VBG O2 Saturation < 60.0 % 10/20/22 18:39 VBG Base Excess -1.3 mEq/L 10/20/22 18:39 Sodium 135 mmol/L (136-145) L 10/22/22 07:57 Potassium 4.6 mmol/L (3.5-5.1) 10/22/22 07:57 Chloride 107 mmol/L (98-107) 10/22/22 07:57 Carbon Dioxide 18 mmol/L (21-32) L 10/22/22 07:57 Anion Gap 10 (3-11) 10/22/22 07:57 BUN 21 mg/dl (6-23) 10/22/22 07:57 Creatinine 0.94 mg/dl (0.6-1.2) 10/22/22 07:57 Est Cr Clr Drug Dosing 61.2 ml/min 10/22/22 07:57 Est GFR ( Amer) 72.8 ml/min 10/22/22 07:57 Est GFR (Non-Af Amer) 62.8 ml/min 10/22/22 07:57 BUN/Creatinine Ratio 22.3 (10-20) H 10/22/22 07:57 Glucose 194 mg/dl (70-99(Fasting)) H 10/22/22 07:57 POC Glucose 215 mg/dl (70-99) H 10/22/22 12:02 Estimat Average Glucose 292 mg/dl 10/21/22 08:36 Hemoglobin A1c 11.8 % (4.5-5.6) H 10/21/22 08:36 Calcium 9.5 mg/dl (8.6-10.3) 10/22/22 07:57 Phosphorus 4.7 mg/dl (2.5-4.9) 10/20/22 17:15 Magnesium 1.8 mg/dl (1.7-2.4) 10/22/22 07:57 Total Bilirubin 0.8 mg/dl (0.2-1.0) 10/20/22 17:15 AST 13 U/L (13-39) 10/20/22 17:15 ALT 15 U/L (7-52) 10/20/22 17:15 Alkaline Phosphatase 105 U/L (34-104) H 10/20/22 17:15 Total Protein 8.3 gm/dl (6.0-8.3) 10/20/22 17:15 Albumin 4.4 gm/dl (3.4-5.0) 10/20/22 17:15 Globulin 3.9 gm/dl (2.5-4.0) 10/20/22 17:15 Albumin/Globulin Ratio 1.1 (0.9-2) 10/20/22 17:15 25-OH Vitamin D Total 20.5 ng/ml (30-100) L 10/21/22 08:36 Urine Color Yellow 10/20/22 17:58 Urine Appearance Clear (Clear) 10/20/22 17:58 Urine pH 5.0 (4.5-7.5) 10/20/22 17:58 Ur Specific [place] 1.036 (1.000-1.030) H 10/20/22 17:58 Urine Protein Negative (Negative) 10/20/22 17:58 Urine Glucose (UA) 3+ (Negative) H 10/20/22 17:58 Urine Ketones 2+ (Negative) H 10/20/22 17:58 Urine Blood Negative (Negative) 10/20/22 17:58 Urine Nitrite Negative (Negative) 10/20/22 17:58 Urine Bilirubin Negative (Negative) 10/20/22 17:58 Urine Urobilinogen Negative (Negative) 10/20/22 17:58 Ur Leukocyte Esterase Negative (Negative) 10/20/22 17:58 SARS-CoV-2, RNA, NAAT NEGATIVE (NEGATIVE) 10/20/22 21:10 Impressions Lumbar Spine X-Ray 10/22/22 11:55 XR lumbar spine 2-3V HISTORY: 67 years-old Female Back Pain acute low back pain COMPARISON: CT 02/19/2022 TECHNIQUE: 3 views of the lumbar spine FINDINGS: Cholecystectomy. Moderate fecal retention. Demineralized appearance of the bones. Mild multilevel vertebral disc space narrowing, spondylotic spurring and facet arthrosis. No acute fracture, subluxation, spondylolysis or spondylolisthesis. Moderate L5-S1 facet arthrosis. IMPRESSION: 1. No acute fracture or subluxation. 2. Predominantly mild degenerative changes as above. ACT 112: Negative or not required by law. The above report was generated using voice recognition software. It may contain grammatical, syntax or spelling errors. Electronically signed by: Garfield Stein M.D. 10/22/2022 1:23 PM Hospital Course (1) DKA (diabetic ketoacidosis): Plan Patient is a 67 yr old female with history of diabetes, recently treated with prednisone,for upper respiratory infection, comes with hyperglycemia, possible mild diabetic ketoacidosis, which got resolved. Uncontrolled diabetes mellitus type 2 Mild DKA-POA HbA1c 11.8 Mild hyperkalemia Anion gap closed Continue insulin per protocol Hyperkalemia resolved wellness educator consulted Appreciate glycemic pharmacist help Monitor BGs Resume losartan upon discharge Plan to discharge on basal insulin: Lantus 20 units daily Discontinue pioglitazone for now. Plan to resume glipizide, Jardiance, metformin upon discharge Hypercalcemia Likely secondary to dehydration Calcium levels normalized with IV fluids Monitor Vitamin D deficiency Continue vitamin D supplements Hypertension hold losartan as above Monitor BP GERD Continue PPI Hyperlipidemia Continue statin Morbid obesity BMI 42 CKD III Monitor renal function DVT Px: Lovenox SQ Code Status Full Code Total Time Total Time Spent Total Time Spent (In Minutes): 55 minutes Discharge Plan Discharge Items Patient Disposition: Home - Self-Care Reason For Visit: HYPERGLYCEMIA Discharge Diagnosis: Uncontrolled diabetes mellitus type 2 Mild DKA Hyperkalemia Hypercalcemia Activity: Per Instructions section Exercise/Sports: Gradually increase as tolerated Non-emergency contact: Primary Care Provider Call non-emergency contact if: you have any medication questions, your symptoms worsen and your pain is concerning for you Follow-up/Referrals: Virginia Matute, [Primary Care Provider] - Diet: Carb Consistent or DM2 and Heart Healthy Addtl Attending Provider Instructions: Follow-up with your primary care physician in 1 week -- Start taking Lantus 20 units daily in the morning. --Stop taking pioglitazone for now. --Discussed with your physician for further adjustment of diabetic medications as advised. -- Get blood test (basic metabolic panel) in 1 week and follow-up with your primary care physician for monitoring your potassium, calcium levels. Seek immediate medical attention if your symptoms reoccur or worsen Please take all medications as instructed on discharge list below. Please call if you have any questions or problems. You can reach a [facility] hospitalist on duty at [facility] 24 hours a day by calling [phone] Pending Studies at Discharge: No Stand-Alone Forms: My [facility], Smoking Cessation Medications and DC Order Prescriptions: New insulin glargine [Lantus Solostar U-100 Insulin] 100 unit/mL (3 mL) insulin pen 20 unit subcut QAM Qty: 15 2RF (DME) pen needle, diabetic [Pen Needle] 32 gauge x 5/32" needle See Rx Instructions .Route Qty: 100 2RF Rx Instructions: As directed Continued metformin 1,000 mg tablet 1,000 mg PO BID atorvastatin 40 mg tablet 40 mg PO QAM nystatin 100,000 unit/gram powder 1 applic TOPICAL TID Rx Instructions: apply to area under left breast Jardiance 25 mg tablet 25 mg PO QAM losartan 50 mg tablet 50 mg PO DAILY omeprazole 40 mg capsule,delayed release(DR/EC) 40 mg PO DAILYBB glipizide 10 mg Tablet Extended Release 24hr 10 mg PO DAILYBB Mag 64 64 mg tablet,delayed release (DR/EC) 128 mg PO QAM cholecalciferol (vitamin D3) [Vitamin D3] 50 mcg (2,000 unit) Tablet 100 mcg PO DAILY Discontinued potassium citrate 15 mEq tablet extended release 1,620 mg PO BID Qty: 180 3RF pioglitazone 45 mg tablet 45 mg PO DAILY Discharge Orders: Discharge Order (Routine); Ordered 10/22/22 Ordered By: Lex Garcia Admission Data Admit Date/Time: 10/21/22 14:43 Attending Provider: Lex Garcia Admit Provider: Von Mancera Primary Care Provider: Virginia Matute Other Providers: Von Mancera
== END 2022-10-22 15:37 | disposition home or self-care (01) | DRG 638 ==
LOC: 2N 16:39 → ED 16:39 → 2N 10-21 00:37 → 3W 10-21 21:50